=== PATIENT | female | born 1945 | race Caucasian/White ===

== ENCOUNTER 2017-06-05 23:01 | Emergency (ER) | payer OTHER ==
[~2017-06-05] VITALS: Ht 152.4 cm; Wt 67.1 kg
[2017-06-05 23:05] VITALS: BP 144/87
--- NOTE | 2017-06-05 23:15 | NUR ---
TO LOBBY AMB, STABLE BLEEDING CONTROLLED, A/W BED, ERMD NOTED
--- NOTE | 2017-06-06 00:22 | NUR ---
PT TAKEN TO CHAIR C
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
--- NOTE | 2017-06-06 00:29 | NUR ---
Dr. Cuellar evaluating patient.
[2017-06-06 00:48] VITALS: BP 139/81
--- NOTE | 2017-06-06 00:48 | NUR ---
Patient discharged with v/s stable. Written and verbal after care instructions given and explained. Patient verbalized understanding. Ambulatory with steady gait. All questions addressed prior to discharge. Advised to follow up with PMD.
== END 2017-06-06 00:48 | disposition home or self-care (01) ==
LOC: MED 23:01
DX: S00.03XA Contusion of scalp, initial encounter (principal); E78.5 Hyperlipidemia, unspecified; Z90.89 Acquired absence of other organs; I10 Essential (primary) hypertension; Z88.0 Allergy status to penicillin; V89.2XXA Person injured in unspecified motor-vehicle accident, traffic, initial encounter; Y93.I9 Activity, other involving external motion; Y92.89 Other specified places as the place of occurrence of the external cause; Y99.8 Other external cause status
CPT/HCPCS: 99283

== ENCOUNTER 2021-03-29 11:39 | Emergency (ER) | payer MEDICARE, OTHER ==
[~2021-03-29] VITALS: Ht 152.4 cm; Wt 61.2 kg
[2021-03-29 12:23] VITALS: BP 108/72
[2021-03-29] MEDS ORDERED: ALBUTEROL SULFATE/IPRATROPIU 3 ML SOL IH ONE (12:55)
[2021-03-29 13:47] LABS: BASOPHILS % (AUTO) 0.1 % (0.0-2.0); HEMATOCRIT 38.5 % (36-48); HEMOGLOBIN 13.2 g/dL (12.0-16.0); LYMPHOCYTES # (AUTO) 1.6 K/uL (2.5-16.5); LYMPHOCYTES % (AUTO) 19.7 % (20.5-51.1); MEAN CORPUSCULAR HEMOGLOBIN 31 pg (27-31); MEAN CORPUSCULAR HGB CONC 34 g/dL (33-37); MONOCYTES # (AUTO) 0.5 K/uL (0.8-1.0); MONOCYTES % (AUTO) 5.6 % (1.7-9.3); NEUTROPHILS # (AUTO) 6.1 K/uL (1.8-7.7); NEUTROPHILS % (AUTO) 74.6 % (42.2-75.2); PLATELET COUNT (AUTO) 341 K/uL (140-450); RED BLOOD CELL COUNT(AUTO) 4.28 MIL/uL (4.20-5.40); WHITE BLOOD COUNT (AUTO) 8.1 K/uL (4.8-10.8)
[2021-03-29] MEDS ORDERED: levoFLOXacin 750 MG TAB PO ONE (13:55)
[2021-03-29 14:32] LABS: ANION GAP 15.5 (8-16); ASPARTATE AMINOTRANSFERASE 40 U/L (15-37); CARBON DIOXIDE 22.8 mmol/L (21-32); CHLORIDE 103 mmol/L (98-107); CREATININE 1.1 mg/dL (0.6-1.3); GLUCOSE 198 mg/dL (74-106); POTASSIUM 4.3 mmol/L (3.5-5.1); SODIUM SERUM 137 mmol/L (136-145); TOTAL BILIRUBIN 0.8 mg/dL (0.0-1.0); UREA NITROGEN, BLOOD 30 mg/dL (7-18)
[2021-03-29] MEDS ORDERED: INHA1SPA74 MC (15:37)
[2021-03-29] MEDS ORDERED: ALBU0.0912 IH (15:37)
[2021-03-29] MEDS ORDERED: PRED20TA5 PO (15:37)
[2021-03-29] MEDS ORDERED: LEVO750T51 PO (15:37)
[2021-03-29] MEDS ORDERED: NAPR-54 PO (15:37)
--- NOTE | 2021-03-29 19:32 | NUR ---
PT NOT IN TENT.
--- NOTE | 2021-03-29 20:03 | NUR ---
CALLED PHONE NUMBER ON FILE, DAUGHTER STATED THEY WENT HOME.
[2021-03-29 20:05] VITALS: BP 108/72
--- NOTE | 2021-03-29 20:05 | NUR ---
Patient discharged with v/s stable. Written and verbal after care instructions given and explained. Patient alert, oriented and verbalized understanding of instructions. Ambulatory with steady gait. All questions addressed prior to discharge. ID band removed. Patient advised to follow up with PMD. Rx of ALBUTEROL, LEVOFLOXACIN, NAPROSYN, AND DELTASONE given. Patient educated on indication of medication including possible reaction and side effects. Opportunity to ask questions provided and answered. PT LEFT WITHOUT PAPERWORK.
== END 2021-03-29 20:05 | disposition home or self-care (01) ==
LOC: MED 11:39
DX: U07.1 COVID-19 (principal); J12.89 Other viral pneumonia; E11.9 Type 2 diabetes mellitus without complications; I10 Essential (primary) hypertension; Z79.899 Other long term (current) drug therapy; Z88.0 Allergy status to penicillin
CPT/HCPCS: 36415; 71045; 80053; 84484; 85025; 93005; 99285

== ENCOUNTER 2021-04-17 18:58 | Emergency (ER) | payer MEDICARE ==
[~2021-04-17] VITALS: Ht 152.4 cm; Wt 61.2 kg
[~2021-04-17 18:58] MED LIST: ALBU0.0912 IH; INHA1SPA74 MC; LEVO750T51 PO; NAPR-54 PO; PRED20TA5 PO
[2021-04-17 19:12] VITALS: BP 131/80
--- NOTE | 2021-04-17 19:17 | NUR ---
TENT 1.
--- NOTE | 2021-04-17 19:40 | NUR ---
PT BACK FROM RAD.
--- NOTE | 2021-04-17 19:47 | NUR ---
TERRY COLLECTED AND TAKEN TO LAB.
[2021-04-17] MEDS ORDERED: ALBU0.0912 IH (20:07)
[2021-04-17] MEDS ORDERED: AZIT250T11 PO (20:07)
[2021-04-17 20:36] VITALS: BP 131/80
--- NOTE | 2021-04-17 20:36 | NUR ---
Patient discharged with v/s stable. Written and verbal after care instructions given and explained. Patient alert, oriented and verbalized understanding of instructions. Ambulatory with steady gait. All questions addressed prior to discharge. ID band removed. Patient advised to follow up with PMD. Rx of AZITHROMYCIN AND ALBUTEROL given. Patient educated on indication of medication including possible reaction and side effects. Opportunity to ask questions provided and answered.
== END 2021-04-17 20:36 | disposition home or self-care (01) ==
LOC: MED 18:58
DX: J18.9 Pneumonia, unspecified organism (principal); Z20.822 Contact with and (suspected) exposure to COVID-19; E11.9 Type 2 diabetes mellitus without complications; I10 Essential (primary) hypertension; Z88.0 Allergy status to penicillin; Z79.899 Other long term (current) drug therapy
CPT/HCPCS: 71045; 99284

== ENCOUNTER 2021-04-29 12:50 | Emergency (ER) | payer MEDICARE ==
[~2021-04-29] VITALS: Ht 149.9 cm; Wt 60.4 kg
[~2021-04-29 12:50] MED LIST changes: +AZIT250T11 PO
[2021-04-29 13:04] VITALS: BP 122/66
--- NOTE | 2021-04-29 13:10 | NUR ---
Pt ambulated to bed 9 at this time.
--- NOTE | 2021-04-29 13:15 | NUR ---
75 y/o female BIB self for c/o abd pain x today and vaginal bleeding. States that she experiences pain and sees blood when she urinates and is unsure if it is from her vagina or her urine. AOX4, able to make needs known. Resp even and unlabored on RA. Abd is soft and tender at site of bladder. No bulges, no pulsations noted on abd. PMH: DM, HTN, COVID+ IN MARCH 2021 Allergies: PCNS Home meds: See list.
--- NOTE | 2021-04-29 13:36 | NUR ---
ELDON CHOWDHURY AT BEDSIDE TO ASSESS PT
[2021-04-29 14:05] LABS: BASOPHILS # (AUTO) 0.1 K/uL (0.00-0.22); BASOPHILS % (AUTO) 0.5 % (0.0-2.0); EOSINOPHILS # (AUTO) 0.3 K/uL (0-0.4); HEMATOCRIT 35.3 % (36-48); HEMOGLOBIN 12.1 g/dL (12.0-16.0); LYMPHOCYTES # (AUTO) 2.8 K/uL (2.5-16.5); LYMPHOCYTES % (AUTO) 21.1 % (20.5-51.1); MEAN CORPUSCULAR HEMOGLOBIN 31 pg (27-31); MEAN CORPUSCULAR HGB CONC 34 g/dL (33-37); MEAN CORPUSCULAR VOLUME 90.3 fL (80-94); MONOCYTES # (AUTO) 0.8 K/uL (0.8-1.0); MONOCYTES % (AUTO) 6.5 % (1.7-9.3); NEUTROPHILS # (AUTO) 9.2 K/uL (1.8-7.7); NEUTROPHILS % (AUTO) 69.9 % (42.2-75.2); PLATELET COUNT (AUTO) 508 K/uL (140-450); RED BLOOD CELL COUNT(AUTO) 3.91 MIL/uL (4.20-5.40); RED CELL DISTRIBUTION WIDTH 13.9 % (11.6-13.7); WHITE BLOOD COUNT (AUTO) 13.1 K/uL (4.8-10.8)
[2021-04-29] MEDS ORDERED: CIPR500T4 PO (14:29)
[2021-04-29] MEDS ORDERED: IBUP-2213 PO (14:29)
[2021-04-29 14:36] LABS: ALBUMIN 3.4 g/dL (3.4-5.0); ANION GAP 13.5 (8-16); ASPARTATE AMINOTRANSFERASE 16 U/L (15-37); CARBON DIOXIDE 24.5 mmol/L (21-32); CHLORIDE 101 mmol/L (98-107); GLUCOSE 181 mg/dL (74-106); SODIUM SERUM 135 mmol/L (136-145); TOTAL BILIRUBIN 0.4 mg/dL (0.0-1.0); UREA NITROGEN, BLOOD 18 mg/dL (7-18)
[2021-04-29 15:02] VITALS: BP 128/72
--- NOTE | 2021-04-29 15:03 | NUR ---
Patient discharged with v/s stable. Written and verbal after care instructions given FOR URINARY TRACT INFECTION AND ABDOMINAL PAIN and explained. Patient alert, oriented and verbalized understanding of instructions. Ambulatory with steady gait. All questions addressed prior to discharge. ID band removed. Patient advised to follow up with PMD. Rx of CIPRO given. Patient educated on indication of medication including possible reaction and side effects. Opportunity to ask questions provided and answered.
[2021-04-29 15:20] LABS: PROTHROMBIN TIME 9.9 secs (10.8-13.4)
[2021-04-29 15:35] LABS: APPEARANCE,URINE BLOODY (CLEAR); COLOR,URINE RED (YELLOW)
[2021-04-29 15:36] LABS: UGLUCOSE 1+ (NEGATIVE)
[2021-04-29 15:38] LABS: BILIRUBIN,URINE NEGATIVE (NEGATIVE); BLOOD, URINE 3+ (NEGATIVE); LEUKOCYTE ESTERASE ,URINE NEGATIVE (NEGATIVE); NITRITE, URINE NEGATIVE (NEGATIVE)
[2021-04-29 15:43] LABS: RBC,URINE TOO NUMEROUS TO COUN /HPF (0-5)
[2021-04-29 15:44] LABS: WBC,URINE NONE SEEN /HPF (0-5)
== END 2021-04-29 15:02 | disposition home or self-care (01) ==
LOC: MED 12:50
DX: N39.0 Urinary tract infection, site not specified (principal); E11.9 Type 2 diabetes mellitus without complications; I10 Essential (primary) hypertension; Z79.1 Long term (current) use of non-steroidal anti-inflammatories (NSAID); Z79.899 Other long term (current) drug therapy; Z79.2 Long term (current) use of antibiotics; Z88.0 Allergy status to penicillin
CPT/HCPCS: 36415; 80053; 81001; 85025; 85610; 85730; 99283

== ENCOUNTER 2022-09-25 17:40 | Inpatient (IN) | payer MEDICARE ==
[~2022-09-25] VITALS: Ht 165.1 cm; Wt 79.8 kg
[2022-09-25] MEDS: NACL 0.9% 1,000 ML IV SCH
[~2022-09-25 17:40] MED LIST changes: +CIPR500T4 PO; +IBUP-2213 PO; -LEVO750T51 PO; +LEVO750T75 PO
[2022-09-25 17:47] VITALS: BP 144/80; PULSE 133; RESP 18; TEMP 103; O2SAT 92
[2022-09-25] MEDS ORDERED: LEVOFLOXACIN 500 MG/D5W PREMIX 100 ML IV ONE (17:50)
[2022-09-25] MEDS ORDERED: NACL 0.9% 2,000 ML IV SCH (17:50)
--- NOTE | 2022-09-25 17:54 | NUR ---
Patient BIBA to bed 10.
--- NOTE | 2022-09-25 17:55 | NUR ---
X-Ray at bedside.
--- NOTE | 2022-09-25 18:01 | NUR ---
Lab at bedside.
--- NOTE | 2022-09-25 18:11 | NUR ---
77 y/o female biba from home for generalized weakness x yesterday. Patient reports feeling nauseous and having episodes of vomiting at home. Patient reports taking Tylenol for symptoms, with relief. Patient reports "feeling hot," subjective fever and "being shaking." Denies any sick contacts at home. EMS started a bolus of Normal saline and started a 20Gauge to right hand. Medical History:HTN, DM ALLERGY: PENICILLIN
[2022-09-25 18:19] LABS: BASOPHILS % (AUTO) 0.2 % (0.0-2.0); EOSINOPHILS # (AUTO) 0.1 K/uL (0-0.4); EOSINOPHILS % (AUTO) 0.6 % (0.0-4.0); HEMATOCRIT 33.9 % (36-48); HEMOGLOBIN 11.6 g/dL (12.0-16.0); LYMPHOCYTES # (AUTO) 0.8 K/uL (2.5-16.5); LYMPHOCYTES % (AUTO) 6.1 % (20.5-51.1); MEAN CORPUSCULAR HEMOGLOBIN 30 pg (27-31); MEAN CORPUSCULAR HGB CONC 34 g/dL (33-37); MONOCYTES # (AUTO) 0.6 K/uL (0.8-1.0); MONOCYTES % (AUTO) 5.1 % (1.7-9.3); NEUTROPHILS # (AUTO) 11.1 K/uL (1.8-7.7); PLATELET COUNT (AUTO) 337 K/uL (140-450); RED BLOOD CELL COUNT(AUTO) 3.81 MIL/uL (4.20-5.40); RED CELL DISTRIBUTION WIDTH 12.9 % (11.6-13.7); WHITE BLOOD COUNT (AUTO) 12.6 K/uL (4.8-10.8)
--- NOTE | 2022-09-25 18:23 | NUR ---
Patient was wheelchair assisted to the restroom. Urine specimen was obtained.
--- NOTE | 2022-09-25 18:25 | NUR ---
Dr. Armstrong evaluating patient at bedside.
[2022-09-25 18:35] LABS: ALBUMIN 3.1 g/dL (3.4-5.0); ANION GAP 16.3 (8-16); ASPARTATE AMINOTRANSFERASE 23 U/L (15-37); CARBON DIOXIDE 19.9 mmol/L (21-32); CHLORIDE 103 mmol/L (98-107); CREATININE 1.3 mg/dL (0.6-1.3); GLUCOSE 197 mg/dL (74-106); POTASSIUM 4.2 mmol/L (3.5-5.1); SODIUM SERUM 135 mmol/L (136-145); TOTAL BILIRUBIN 0.7 mg/dL (0.0-1.0); UREA NITROGEN, BLOOD 26 mg/dL (7-18)
[2022-09-25] MEDS ORDERED: ONDANSETRON 4 MG/2 ML VIAL IVP ONE (18:40)
[2022-09-25 18:57] LABS: BILIRUBIN,URINE NEGATIVE (NEGATIVE); BLOOD, URINE 3+ (NEGATIVE); COLOR,URINE YELLOW (YELLOW); LEUKOCYTE ESTERASE ,URINE 2+ (NEGATIVE); NITRITE, URINE POSITIVE (NEGATIVE); PH,URINE 5.5 (5.0-9.0); UGLUCOSE NEGATIVE (NEGATIVE)
[2022-09-25 18:59] LABS: APPEARANCE,URINE CLOUDY (CLEAR)
[2022-09-25] MEDS ORDERED: FISH1CAP3 PO (19:04)
[2022-09-25] MEDS ORDERED: FERR-212 PO (19:04)
[2022-09-25] MEDS ORDERED: ASPI-1749 PO (19:04)
[2022-09-25] MEDS ORDERED: LISI10TA31 PO (19:04)
[2022-09-25] MEDS ORDERED: ALEN70TA85 PO (19:04)
[2022-09-25] MEDS ORDERED: DULA1.5S SC (19:04)
[2022-09-25] MEDS ORDERED: GRAP50CA PO (19:04)
[2022-09-25] MEDS ORDERED: LORA10TA19 PO (19:04)
[2022-09-25] MEDS ORDERED: [UNRECOGNIZED DRUG - CODE] PO ×2 (19:04)
[2022-09-25] MEDS ORDERED: AMLO10TA PO (19:04)
[2022-09-25] MEDS ORDERED: [UNRECOGNIZED DRUG - CODE] PO (19:04)
[2022-09-25] MEDS ORDERED: MULT1TAB99 PO (19:04)
[2022-09-25] MEDS ORDERED: METO25TE2 PO (19:04)
--- NOTE | 2022-09-25 19:04 | NUR ---
med rec complete.
--- NOTE | 2022-09-25 19:29 | NUR ---
Report given to CIRO Edouard for transfer of care.
[2022-09-25 19:42] LABS: RBC,URINE TOO NUMEROUS TO COUN /HPF (0-5)
[2022-09-25] MEDS ORDERED: POTASSIUM CHLORIDE 10 MEQ TABER PO PRN (20:10)
[2022-09-25] MEDS ORDERED: MORPHINE SULFATE 4 MG/ML SYR IVP PRN (20:10)
[2022-09-25] MEDS ORDERED: HYDROcodone/APAP 5/325 MG 1 TAB TAB PO PRN (20:10)
[2022-09-25] MEDS ORDERED: ONDANSETRON 4 MG/2 ML VIAL IVP PRN (20:10)
[2022-09-25] MEDS ORDERED: MAGNESIUM OXIDE 400 MG TAB PO PRN (20:10)
[2022-09-25] MEDS ORDERED: ATOR40TA PO (22:06)
--- NOTE | 2022-09-25 23:40 | NUR ---
Pt. Temp 102.6. PRN Tylenol given as ordered.
[2022-09-25] MEDS: ACETAMINOPHEN 325 MG TAB PO PRN (23:41)
--- NOTE | 2022-09-26 00:13 | NUR ---
Temp checked. No fever at this time. No complains of pain and discomfort.
--- NOTE | 2022-09-26 03:35 | NUR ---
pt is resting comfortably. Rise and fall of chest noted. No s/s of pain and distress.
--- NOTE | 2022-09-26 05:01 | NUR ---
Pt was assisted to restroom. No c/o pain or discomfort at this time.
[2022-09-26 07:15] LABS: BASOPHILS % (AUTO) 0.1 % (0.0-2.0); EOSINOPHILS % (AUTO) 0.2 % (0.0-4.0); HEMATOCRIT 34.4 % (36-48); HEMOGLOBIN 11.3 g/dL (12.0-16.0); LYMPHOCYTES # (AUTO) 1.9 K/uL (2.5-16.5); LYMPHOCYTES % (AUTO) 13.1 % (20.5-51.1); MEAN CORPUSCULAR HEMOGLOBIN 30 pg (27-31); MEAN CORPUSCULAR HGB CONC 33 g/dL (33-37); MEAN CORPUSCULAR VOLUME 91.1 fL (80-94); MONOCYTES # (AUTO) 0.9 K/uL (0.8-1.0); MONOCYTES % (AUTO) 6.1 % (1.7-9.3); NEUTROPHILS # (AUTO) 11.6 K/uL (1.8-7.7); NEUTROPHILS % (AUTO) 80.5 % (42.2-75.2); PLATELET COUNT (AUTO) 338 K/uL (140-450); RED BLOOD CELL COUNT(AUTO) 3.78 MIL/uL (4.20-5.40); RED CELL DISTRIBUTION WIDTH 13.4 % (11.6-13.7); WHITE BLOOD COUNT (AUTO) 14.4 K/uL (4.8-10.8)
--- NOTE | 2022-09-26 07:26 | NUR ---
Report given to Marleni TANNER
[2022-09-26 07:34] LABS: ANION GAP 14.6 (8-16); CARBON DIOXIDE 21.8 mmol/L (21-32); CHLORIDE 108 mmol/L (98-107); CREATININE 1.3 mg/dL (0.6-1.3); GLUCOSE 160 mg/dL (74-106); POTASSIUM 4.4 mmol/L (3.5-5.1); SODIUM SERUM 140 mmol/L (136-145); UREA NITROGEN, BLOOD 18 mg/dL (7-18)
--- NOTE | 2022-09-26 08:40 | NUR ---
Patient will be admitted Admited to TELEMETRY. Will go to room 121B. Belongings list completed. Report to LISA TANNER
[2022-09-26 08:50] VITALS: BP 132/49; PULSE 117; PULSE 121; RESP 18; TEMP 98.7; O2SAT 94
[2022-09-26 08:55] VITALS: PULSE 119; RESP 18; O2SAT 94
[2022-09-26] MEDS: NACL 0.9% 1,000 ML IV SCH ×2 (09:24→22:44)
[2022-09-26 12:00] VITALS: BP 125/59; PULSE 104; PULSE 109; RESP 18; TEMP 98.5; O2SAT 95
--- NOTE | 2022-09-26 12:39 | NUR ---
RECEIVED REPORT FROM ER NURSE FOR CONTINUITY OF CARE. PT STABLE UPON TRANSPORT WITH NO SIGNS OF DISTRESS. PT SI A&OX4, SKIN INTACT, AMBULATES WITH ASSISTANCE, HR A LITTLE FAST BUT HAS SUB SIDED NOW, AND ON ROOM AIR. PT HAS AM IV IN HER R HAND 24 G WITH NORMAL SALINE RUNNING AT 80ML/HR. ALL SAFETY MEASURES IN PLACE INCLUDING CALL LIGHT WITHIN REACH AND BED IN LOW POSITION. CONTINUATION OF MONITORING CONTINUED. Addendum: 09/26/22 at 1247 by Sonja Betancur RN RECEIVED THE REPORT AT 0855 THIS MORNING
[2022-09-26] MEDS: ACETAMINOPHEN 325 MG TAB PO PRN ×2 (14:41→22:41)
[2022-09-26 16:00] VITALS: BP 124/55; PULSE 105; RESP 20; TEMP 99.5; O2SAT 92
--- NOTE | 2022-09-26 19:30 | NUR ---
RECEIVED REPORT FROM DAY SHIFT NURSE FOR CONTINUITY OF CARE. PT IS AWAKE AND ALERT. NOT IN ANY DISTRESS. DENIES PAIN. CALL LIGHT WITHIN REACH. POC DISCUSSED. WILL CONTINUE TO MONITOR THE PT.
--- NOTE | 2022-09-26 19:31 | NUR ---
ENDORSED PT TO OPERATIONAL RISK CONSULTANT NURSE FOR CONTINUITY OF CARE. PT STABLE AT THIS TIME.
[2022-09-26 20:00] VITALS: BP_SYST 119; BP_SYST 132; BP_DIAS 58; BP_DIAS 59; PULSE 89; PULSE 99; RESP 18; TEMP 99; O2SAT 95; O2SAT 96
--- NOTE | 2022-09-26 22:46 | NUR ---
PT HAS CHILLS AND A FEVER OF 100.4. TYLENOL WAS GIVEN. COOLING MEASURES TAKEN.
[2022-09-27] VITALS: BP 132/58; PULSE 109; PULSE 115; RESP 22; TEMP 102.4; O2SAT 95
--- NOTE | 2022-09-27 00:27 | NUR ---
REASSESSED PT TEMPERATURE AND ITS NOW COME DOWN TO 99.0. PT HAS NO CHILLS AND DOES NOT HAVE ANY COMPLAINS. CALL LIGHT WITHIN REACH. WILL CONTINUE TO MONITOR THE PT.
--- NOTE | 2022-09-27 02:15 | NUR ---
OBSERVED PT. PT IS SLEEPING COMFORTABLY IN BED. NOT IN ANY DISTRESS. BREATHING EVEN AND UNLABORED. CALL LIGHT WITHIN REACH. WILL CONTINUE TO MONITOR THE PT.
[2022-09-27 04:00] VITALS: BP 134/60; PULSE 107; PULSE 85; RESP 18; TEMP 98; O2SAT 97
--- NOTE | 2022-09-27 04:00 | NUR ---
VITAL SIGNS TAKEN AND STABLE. PT TEMP IS 98.0. PT HAS NO FEVER. ASSISTED PT TO RESTROOM AND BACK TO BED SAFELY. TOLERATED IT WELL. CALL LIGHT WITHIN REACH.
[2022-09-27 06:51] LABS: BASOPHILS % (AUTO) 0.2 % (0.0-2.0); HEMATOCRIT 30.7 % (36-48); HEMOGLOBIN 10.4 g/dL (12.0-16.0); LYMPHOCYTES # (AUTO) 1.3 K/uL (2.5-16.5); MEAN CORPUSCULAR HEMOGLOBIN 30 pg (27-31); MEAN CORPUSCULAR HGB CONC 34 g/dL (33-37); MEAN CORPUSCULAR VOLUME 89.6 fL (80-94); MONOCYTES # (AUTO) 0.9 K/uL (0.8-1.0); MONOCYTES % (AUTO) 6.2 % (1.7-9.3); NEUTROPHILS # (AUTO) 12.4 K/uL (1.8-7.7); PLATELET COUNT (AUTO) 304 K/uL (140-450); RED BLOOD CELL COUNT(AUTO) 3.43 MIL/uL (4.20-5.40); RED CELL DISTRIBUTION WIDTH 13.1 % (11.6-13.7); WHITE BLOOD COUNT (AUTO) 14.6 K/uL (4.8-10.8)
--- NOTE | 2022-09-27 07:15 | NUR ---
RECEIVED REPORT FROM SUPERVISOR VENDOR QUALITY NURSE FOR CONTINUITY OF CARE. PT STABLE AT THIS TIME.
[2022-09-27 07:19] LABS: LYMPHOCYTES % (AUTO) 8.6 % (20.5-51.1)
--- NOTE | 2022-09-27 07:19 | NUR ---
ENDORSED PT TO DAY SHIFT NURSE FOR CONTINUITY OF CARE. PT IS STABLE.
[2022-09-27 07:33] LABS: CARBON DIOXIDE 21.3 mmol/L (21-32); CHLORIDE 108 mmol/L (98-107); CREATININE 1.1 mg/dL (0.6-1.3); GLUCOSE 180 mg/dL (74-106); POTASSIUM 4.3 mmol/L (3.5-5.1); SODIUM SERUM 138 mmol/L (136-145); UREA NITROGEN, BLOOD 18 mg/dL (7-18)
[2022-09-27 08:00] VITALS: BP 125/49; PULSE 94; PULSE 96; RESP 19; TEMP 98.9; O2SAT 94
[2022-09-27] MEDS: NACL 0.9% 1,000 ML IV SCH ×2 (09:32→22:10)
--- NOTE | 2022-09-27 11:33 | NUR ---
PATIENT HAS BEEN SCREENED AND CATEGORIZED LOW NUTRITION RISK. PATIENT WILL BE SEEN WITHIN 7 DAYS OF ADMISSION. 09/25/22-10/02/[address]
[2022-09-27 12:00] VITALS: BP 121/52; PULSE 100; RESP 20; TEMP 97.8; O2SAT 96
[2022-09-27 16:00] VITALS: BP 144/72; PULSE 100; PULSE 101; RESP 18; TEMP 99.6; O2SAT 94
--- NOTE | 2022-09-27 19:26 | NUR ---
ENDORSED PT TO HOUSEKEEPER/LAUNDRY ASSISTANT NURSE FOR CONTINUITY OF CARE. PT STABLE AT THIS TIME.
--- NOTE | 2022-09-27 19:28 | NUR ---
RECEIVED PT FROM DONA JOE FOR CONTINUITY OF CARE. PT IS STABLE
[2022-09-27 20:00] VITALS: BP 130/50; PULSE 93; PULSE 98; RESP 18; RESP 19; TEMP 97.8; O2SAT 95
[2022-09-28] VITALS: BP 126/61; PULSE 88; PULSE 96; RESP 18; TEMP 97.9; O2SAT 95
[2022-09-28 04:00] VITALS: BP 124/51; PULSE 91; RESP 18; TEMP 98.6; O2SAT 95
[2022-09-28 05:08] LABS: BASOPHILS % (AUTO) 0.1 % (0.0-2.0); EOSINOPHILS # (AUTO) 0.1 K/uL (0-0.4); EOSINOPHILS % (AUTO) 0.7 % (0.0-4.0); HEMATOCRIT 29.3 % (36-48); HEMOGLOBIN 10.1 g/dL (12.0-16.0); LYMPHOCYTES # (AUTO) 1.4 K/uL (2.5-16.5); LYMPHOCYTES % (AUTO) 12.4 % (20.5-51.1); MEAN CORPUSCULAR HEMOGLOBIN 31 pg (27-31); MEAN CORPUSCULAR HGB CONC 35 g/dL (33-37); MEAN CORPUSCULAR VOLUME 89.2 fL (80-94); MONOCYTES % (AUTO) 8.8 % (1.7-9.3); NEUTROPHILS # (AUTO) 8.7 K/uL (1.8-7.7); PLATELET COUNT (AUTO) 290 K/uL (140-450); RED BLOOD CELL COUNT(AUTO) 3.28 MIL/uL (4.20-5.40); RED CELL DISTRIBUTION WIDTH 13.1 % (11.6-13.7); WHITE BLOOD COUNT (AUTO) 11.2 K/uL (4.8-10.8)
[2022-09-28 05:34] LABS: ANION GAP 13.5 (8-16); CHLORIDE 107 mmol/L (98-107); GLUCOSE 163 mg/dL (74-106); POTASSIUM 3.5 mmol/L (3.5-5.1); SODIUM SERUM 137 mmol/L (136-145); UREA NITROGEN, BLOOD 13 mg/dL (7-18)
--- NOTE | 2022-09-28 07:32 | NUR ---
ENDORSED PT TO AM NURSE FOR CONTINUITY OF CARE. PT IS STABLE
[2022-09-28 08:00] VITALS: BP 134/59; PULSE 89; PULSE 92; RESP 16; TEMP 97.8; O2SAT 95
--- NOTE | 2022-09-28 08:17 | NUR ---
RECEIVED REPORT FROM CLASSICS PROFESSOR NURSE FOR CONTINUITY OF CARE. PATIENT IS AWAKE, ALERT AND ORIENTED X4, ROMANIAN SPEAKING BUT DOES UNDERSTAND SOME NAURUAN. CURRENTLY STABLE ON ROOM AIR. IV SITE LOCATED TO LEFT HAND 20 GAUGE, INTACT AND PATENT. POC DISCUSSED, CALL LIGHT PLACED WITHIN REACH, SAFETY MEASURES IN PLACE. WILL MAKE FREQUENT ROUNDS THROUGHOUT SHIFT.
--- NOTE | 2022-09-28 08:40 | NUR ---
SCHEDULED MEDICATIONS ADMINISTERED WITH NO COMPLICATIONS. PATIENT RESTING COMFORTABLY.
[2022-09-28] MEDS: NACL 0.9% 1,000 ML IV SCH ×2 (10:40→23:10)
--- NOTE | 2022-09-28 11:30 | NUR ---
RECEIVED CALL FROM LAB AT 1113. PATIENTS BLOOD AND URINE CULTURE CAME BACK POSITIVE FOR E-COLI, MDRO, AND ESBL. DR COHN WAS CONTACTED AT 1119, STILL WAITING FOR CALL BACK.
[2022-09-28 12:00] VITALS: BP 143/73; PULSE 93; PULSE 94; RESP 19; TEMP 99.1; O2SAT 97
--- NOTE | 2022-09-28 13:30 | NUR ---
DC PLANN[age] YRS OLD FEMALE PATIENT WAS ADMITTED FROM HOME WITH A DX OF UTI GENERALIZED WEAKNESS. PATIENT HAS A HX OF HEN, HLD IRON DEFICIENCY AND ANEMIA. CXR NORMAL CHEST. URINE CULTURE SHOWED ESBL. ADMINISTERED IVF, IV ABX ROCEPHIN AND CONTINUED HOME MEDS. DC PLAN TO GO HOME VS SNF FOR IV ABX. CM TO FOLLOW Addendum: 09/29/22 at 1339 by Michelle Huerta RN DC PLANNING: CM SPOKE WITH PT'S DAUGHTER ALIX REGARDING THE DC PLAN TO SNF VS HOME HEALTH, PER ALIX AND PATIENT PREFERRED TO GO TO HOME WITH HOME HEALTH. PATIENT HAS AN ORDER FOR IV ABX MEROPENEM 1GM IV Q12 HRS FOR 10 DAYS. AWAITING FOR PICC LINE TO BE INSERTED FAXED THE ORDER TO PT'S INSURANCE SPOKE WITH AYLEEN STATED [facility] IS CONTRACTED WITH THE. FAXED THE ORDER TO JETT AT [facility] . AWAITING FOR THE RESPONSE. CM TO FOLLOW Addendum: 09/29/22 at 1613 by Michelle Huerta RN DC PLANNING: RECEIVED A CALL FROM JETT AT [facility] STATED WILL DELIVERY THE MEDS TONIGHT. NOTIFIED HER THAT PATIENT HAS A MID LINE SINGLE LUMEN. AWAITING FOR MID LINE TO BE INSERTED. CM TO FOLLOW
[2022-09-28 16:00] VITALS: BP 148/68; PULSE 88; PULSE 90; RESP 18; TEMP 98.9; O2SAT 97
--- NOTE | 2022-09-28 19:20 | NUR ---
RECEIVED ENDORSEMENT OF CARE FROM TYRON WORTHY,PATIENT IN BED ALERT AND ORIENTED. SHE HAS CONCERNS ABOUT HAVING A PICC LINE INSERTED. NURSING GAVE EXTENSIVE EDUCATION ON THE NEED FOR PICC LINE AND THE BENEFITS OF PICC LINE. PATIENT WAS ENCOURAGED TO SPEAK WITH PRICING MANAGER IN THE MORNING BECAUSE SHE DOES NOT WANT TO GO TO A CARE HOME FACILITY TO POSSIBLE HOME HEALTH CARE. PATIENT UNDERSTOOD AGREED TO SPEAK WITH PRICING MANAGER IN THE MORNING. PATIENT WANTS DAUGHTER TO BE AVAILABLE FOR THE REASON FOR THE PICC LINE IN AM. NURSING WILL ENDORSE TO AM SHIFT NURSE. NO COMPLAINTS OF PAIN/DISCOMFORT. NO NOTED RESPIRATORY DISTRESS. CHEST RISING AND FALLING WITHOUT INCIDENT. SIDE RAILS UP FOR SAFETY AND ADJUSTMENT. CALL LIGHT WITH ASSISTANCE AND NEEDS. [email or web address]
[2022-09-28 20:00] VITALS: BP 123/76; PULSE 73; PULSE 93; RESP 20; TEMP 97.5; O2SAT 98
[2022-09-28] MEDS: MEROPENEM 1,000 MG in NACL 0.9% 50 ML IV SCH (21:44)
--- NOTE | 2022-09-28 23:22 | NUR ---
PATIENT IS ON CONTACT ISOLATION DUE TO POSITIVE FOR E.COLI, ESBL AND MDRO. PATIENT WAS EXPLAINED OF THE NEED TO BE ON ISOLATION. PATIENT WAS ABLE TO USE THE RESTROOM WITHOUT ASSISTANCE. SIDE RAILS UP X 2 FOR SAFETY AND COMFORT. CALL LIGHT WITHIN REACH FOR ALL NEEDS AND ASSISTANCE. DENIES PAIN/DISCOMFORT. NO RESPIRATORY DISTRESS. [email or web address]
[2022-09-29] VITALS: BP 136/55; PULSE 85; RESP 19; TEMP 99.3; O2SAT 94
--- NOTE | 2022-09-29 03:06 | NUR ---
PATIENT IN BED ASLEEP. NO NOTED S/S OF PAIN/DISCOMFORT. ALL NEEDS MET AT THIS TIME. NO NOTED DISCOMFORT OR PAIN. NO NOTED RESPIRATORY DISTRESS. SIDE RAILS UP CALL LIGHT WITHIN REACH [email or web address]
[2022-09-29 04:00] VITALS: BP 157/74; PULSE 80; PULSE 91; RESP 20; TEMP 98.3; O2SAT 96
[2022-09-29 05:12] LABS: BASOPHILS % (AUTO) 0.3 % (0.0-2.0); EOSINOPHILS # (AUTO) 0.2 K/uL (0-0.4); EOSINOPHILS % (AUTO) 2.5 % (0.0-4.0); HEMATOCRIT 30.8 % (36-48); HEMOGLOBIN 10.7 g/dL (12.0-16.0); LYMPHOCYTES # (AUTO) 1.6 K/uL (2.5-16.5); LYMPHOCYTES % (AUTO) 19.3 % (20.5-51.1); MEAN CORPUSCULAR HEMOGLOBIN 31 pg (27-31); MEAN CORPUSCULAR HGB CONC 35 g/dL (33-37); MEAN CORPUSCULAR VOLUME 89.5 fL (80-94); MONOCYTES # (AUTO) 0.8 K/uL (0.8-1.0); MONOCYTES % (AUTO) 9.7 % (1.7-9.3); NEUTROPHILS # (AUTO) 5.5 K/uL (1.8-7.7); NEUTROPHILS % (AUTO) 68.2 % (42.2-75.2); PLATELET COUNT (AUTO) 301 K/uL (140-450); RED BLOOD CELL COUNT(AUTO) 3.44 MIL/uL (4.20-5.40); WHITE BLOOD COUNT (AUTO) 8.1 K/uL (4.8-10.8)
[2022-09-29 05:39] LABS: CARBON DIOXIDE 23.2 mmol/L (21-32); CHLORIDE 107 mmol/L (98-107); CREATININE 0.9 mg/dL (0.6-1.3); GLUCOSE 145 mg/dL (74-106); POTASSIUM 3.2 mmol/L (3.5-5.1); SODIUM SERUM 139 mmol/L (136-145); UREA NITROGEN, BLOOD 10 mg/dL (7-18)
--- NOTE | 2022-09-29 05:49 | NUR ---
PATIENT WAS ABLE TO USE THE RESTROOM WITHOUT PROBLEM. PATIENT REMAINS CLEAN AND DRY AT THIS TIME. SIDE RAILS UP X 2 CALL LIGHT WITH REACH. [email or web address]
--- NOTE | 2022-09-29 07:01 | NUR ---
ENDORSED PATIENT CARE TO NATY TANNER, PATIENT WAS STABLE DURING SHIFT REPORT. [email or web address]
[2022-09-29 08:00] VITALS: BP 157/73; PULSE 73; PULSE 78; PULSE 85; RESP 18; TEMP 97.8; O2SAT 97; O2SAT 98
[2022-09-29] MEDS: MEROPENEM 1,000 MG in NACL 0.9% 50 ML IV SCH (09:28)
[2022-09-29 12:00] VITALS: BP 154/72; PULSE 85; RESP 19; TEMP 97.8; O2SAT 95
[2022-09-29] MEDS: NACL 0.9% 1,000 ML IV SCH (12:36)
[2022-09-29 16:00] VITALS: PULSE 83
[2022-09-29] MEDS ORDERED: MERO1VIA15 IV (17:51)
[2022-09-29 17:53] VITALS: BP 145/73; PULSE 85; RESP 18; TEMP 97.8
--- NOTE | 2022-09-29 18:13 | NUR ---
PICC LINE INSERTED BY PICC LINE NURSE LANDRY. RADIOLOGY CALLED TO VERIFY PLACEMENT. DISCHARGE ORDER WAS PLACED. HOME HEALTH CONFIRMED FOR PT. PT DAUGHTER AT BEDSIDE. EDUCATION ON PICC LINE CARE AND DISCHARGE PROVIDED.
--- NOTE | 2022-09-29 19:15 | NUR ---
PT PREPARED FOR DISCHARGE. PT VERBALIZE UNDERSTANDING. NEW PICC LINE IN PLACE, PATENT, DRESSING INTACT. OTHER IV REMOVED, ID BAND REMOVED. PT LEFT UNIT VIA WHEELCHAIR WITH DAUGHTER. PT STABLE UPON DISCHARGE, NO SIGNS OF DISTRESS, HAPPY TO GO HOME.
== END 2022-09-29 19:10 | disposition home health service (06) | DRG 872 ==
LOC: MED 17:40 → UNDOADMOB 20:12 → MTU 20:12 → INTOOBSV 09-26 11:49 → OBSVTOIN 09-26 11:49 → MTU 09-27 11:49
PROVIDERS: ADMIT Student in an Organized Health Care Education/Training Program; ATTEND Student in an Organized Health Care Education/Training Program
PROC: 02HV33Z Insertion of Infusion Device into Superior Vena Cava, Percutaneous Approach (ICD-10-PCS; principal; 2022-09-29)
DX: A41.51 Sepsis due to Escherichia coli [E. coli] (principal); N39.0 Urinary tract infection, site not specified; Z16.12 Extended spectrum beta lactamase (ESBL) resistance; E87.1 Hypo-osmolality and hyponatremia; E11.9 Type 2 diabetes mellitus without complications; E86.1 Hypovolemia; D50.9 Iron deficiency anemia, unspecified; E78.5 Hyperlipidemia, unspecified; I10 Essential (primary) hypertension; Z90.710 Acquired absence of both cervix and uterus; R53.1 Weakness; Z85.42 Personal history of malignant neoplasm of other parts of uterus; Z90.49 Acquired absence of other specified parts of digestive tract; Z88.0 Allergy status to penicillin; Z79.899 Other long term (current) drug therapy; Z79.82 Long term (current) use of aspirin; Z87.440 Personal history of urinary (tract) infections
CPT/HCPCS: 36415; 71045; 80048; 80053; 81001; 83605; 83880; 84484; 85025; 87040; 87081; 87086; 93005; 96361; 96365; 96375; 99285; G0378; J0696; J1644; J1956; J2185; J2405; J7060; Q0092

== ENCOUNTER 2023-02-27 09:30 | Emergency (ER) | payer MEDICARE ==
[~2023-02-27] VITALS: Ht 160 cm; Wt 65.8 kg
[~2023-02-27 09:30] MED LIST changes: -ALBU0.0912 IH; +ALEN70TA85 PO; +AMLO10TA PO; +ASPI-1749 PO; +ATOR40TA PO; -AZIT250T11 PO; -CIPR500T4 PO; +DULA1.5S SC; +FERR-212 PO; +FISH1CAP3 PO; +GRAP50CA PO; -IBUP-2213 PO; -INHA1SPA74 MC; -LEVO750T75 PO; +LISI10TA31 PO; +LORA10TA19 PO; +MERO1VIA15 IV; +METO25TE2 PO; +MULT1TAB99 PO; -NAPR-54 PO; -PRED20TA5 PO; +[UNRECOGNIZED DRUG - CODE] PO; +[UNRECOGNIZED DRUG - CODE] PO
[2023-02-27 09:33] VITALS: BP 156/75; PULSE 100; RESP 18; TEMP 97.9; O2SAT 98
[2023-02-27] MEDS ORDERED: ACETAMINOPHEN EXTRA STRENGTH 500 MG TAB PO ONE (09:45)
[2023-02-27 10:27] LABS: BASOPHILS % (AUTO) 0.4 % (0.0-2.0); EOSINOPHILS # (AUTO) 0.6 K/uL (0-0.4); EOSINOPHILS % (AUTO) 7.7 % (0.0-4.0); HEMATOCRIT 37.9 % (36-48); HEMOGLOBIN 12.6 g/dL (12.0-16.0); LYMPHOCYTES # (AUTO) 2.6 K/uL (2.5-16.5); LYMPHOCYTES % (AUTO) 32.7 % (20.5-51.1); MEAN CORPUSCULAR HEMOGLOBIN 30 pg (27-31); MEAN CORPUSCULAR HGB CONC 33 g/dL (33-37); MONOCYTES # (AUTO) 0.6 K/uL (0.8-1.0); NEUTROPHILS # (AUTO) 4.1 K/uL (1.8-7.7); NEUTROPHILS % (AUTO) 52.2 % (42.2-75.2); PLATELET COUNT (AUTO) 312 K/uL (140-450); RED BLOOD CELL COUNT(AUTO) 4.16 MIL/uL (4.20-5.40); RED CELL DISTRIBUTION WIDTH 13.7 % (11.6-13.7); WHITE BLOOD COUNT (AUTO) 7.9 K/uL (4.8-10.8)
[2023-02-27 10:43] LABS: ALANINE AMINOTRANSFERASE 33 U/L (12-78); ALBUMIN 3.8 g/dL (3.4-5.0); ALKALINE PHOSPHATASE 104 U/L (50-136); ANION GAP 15.1 (8-16); ASPARTATE AMINOTRANSFERASE 23 U/L (15-37); CALCIUM 10.7 mg/dL (8.5-10.1); CARBON DIOXIDE 24.3 mmol/L (21-32); CHLORIDE 105 mmol/L (98-107); CREATININE 1.1 mg/dL (0.6-1.3); GLUCOSE 160 mg/dL (74-106); POTASSIUM 4.4 mmol/L (3.5-5.1); SODIUM SERUM 140 mmol/L (136-145); TOTAL BILIRUBIN 0.5 mg/dL (0.0-1.0); TOTAL PROTEIN, SERUM 7.7 g/dL (6.4-8.2); UREA NITROGEN, BLOOD 29 mg/dL (7-18)
[2023-02-27 10:50] VITALS: O2SAT 98
[2023-02-27] MEDS ORDERED: ACET-10509 PO (13:14)
[2023-02-27] MEDS ORDERED: DICL100G32 TP (13:14)
[2023-02-27] MEDS ORDERED: LID5T TP (13:14)
== END 2023-02-27 13:16 | disposition home or self-care (01) ==
LOC: MED 09:30
DX: R07.89 Other chest pain (principal); E11.9 Type 2 diabetes mellitus without complications; I10 Essential (primary) hypertension; Z88.0 Allergy status to penicillin; Z79.4 Long term (current) use of insulin; Z79.899 Other long term (current) drug therapy; V49.88XA Car occupant (driver) (passenger) injured in other specified transport accidents, initial encounter; Y93.89 Activity, other specified; Y92.89 Other specified places as the place of occurrence of the external cause; Y99.8 Other external cause status
CPT/HCPCS: 36415; 71045; 71100; 80053; 84484; 85025; 93005; 99285

== ENCOUNTER 2023-07-26 18:08 | Emergency (ER) | payer MEDICARE ==
[~2023-07-26] VITALS: Ht 152.4 cm; Wt 62.1 kg
[~2023-07-26 18:08] MED LIST changes: +ACET-10509 PO; +DICL100G32 TP; +LID5T TP
[2023-07-26 18:20] VITALS: BP 137/76; PULSE 72; RESP 16; TEMP 98; O2SAT 96
[2023-07-26 21:13] VITALS: O2SAT 95
[2023-07-26 21:20] VITALS: BP 152/65; PULSE 86; RESP 23; O2SAT 94
[2023-07-26] MEDS ORDERED: IBUP-2213 PO (21:45)
== END 2023-07-26 22:23 | disposition home or self-care (01) ==
LOC: MED 18:08
DX: S62.396A Other fracture of fifth metacarpal bone, right hand, initial encounter for closed fracture (principal); I10 Essential (primary) hypertension; Z88.0 Allergy status to penicillin; Z79.899 Other long term (current) drug therapy; W19.XXXA Unspecified fall, initial encounter; Y93.89 Activity, other specified; Y92.481 Parking lot as the place of occurrence of the external cause; Y99.8 Other external cause status
CPT/HCPCS: 73110; 73130; 99284